=== PATIENT | female | born 2000 | race Caucasian/White ===

== ENCOUNTER 2024-10-04 19:39 | Emergency (ER) | payer OTHER, SELFPAY ==
[2024-10-04 19:42] VITALS: BP 133/74; PULSE 89; RESP 18; TEMP 36.2; O2SAT 97; BMI 25.8
[2024-10-04 20:37] LABS: Bacteria Urine Few (2-10); Culture Indicated Urine Specimen Cultured; RBC Urine 0-1/HPF (0-5/HPF); Squamous Epithelial Cell Urine 5-10 /HPF (0-5/HPF); Urine Volume 10mL (spun); WBC Urine 1-5/HPF (0-5/HPF)
--- NOTE | 2024-10-04 21:41 | PC.NURSE ---
Pt's spouse called stating patient is continuing to throw up. Offered antinausea medications for patient. Spouse reports pt declines antinausea meds at this time.
== END 2024-10-05 02:46 | disposition left against medical advice (07) ==
PROVIDERS: Emergency Provider Emergency Medicine
DX: R11.2 Nausea with vomiting, unspecified (principal)
CPT/HCPCS: 81003; 81015; 81025; 87086; 99282